=== PATIENT | male | born 1935 | race Two or more races ===

== ENCOUNTER 2023-12-30 13:37 | Emergency (ER) | payer OTHER ==
[~2023-12-30] VITALS: Ht 182.9 cm; Wt 61.2 kg
[2023-12-30] MEDS ORDERED: LIPITOR40 M1 PO (14:04)
[2023-12-30] MEDS ORDERED: TAMS0.4C PO (14:04)
== END 2023-12-30 18:24 | disposition home or self-care (01) ==
LOC: ER 13:37
DX: S09.8XXA Other specified injuries of head, initial encounter (principal); W19.XXXA Unspecified fall, initial encounter; Y93.89 Activity, other specified; Y92.89 Other specified places as the place of occurrence of the external cause; Y99.8 Other external cause status

== ENCOUNTER 2024-10-07 09:11 | Outpatient (CLI) | payer OTHER ==
[~2024-10-07 09:11] MED LIST: LIPITOR40 M1 PO; TAMS0.4C PO
== END 2024-10-07 09:13 | disposition home or self-care (01) ==
LOC: SONOGRAMA 09:11
PROVIDERS: ATTEND Urology
DX: N40.0 Benign prostatic hyperplasia without lower urinary tract symptoms (principal)